=== PATIENT | female | born 1990 | race Caucasian/White ===

== ENCOUNTER 2020-03-12 06:48 | Outpatient (NON) | payer OTHER, SELFPAY ==
[2020-03-12 18:39] LABS: SARS-CoV-2 RNA PCR Negative
== END 2020-03-12 06:49 ==
PROVIDERS: PCP Family Medicine; Visit Provider Family Medicine
DX: Z20.828 Contact with and (suspected) exposure to other viral communicable diseases (principal); J01.90 Acute sinusitis, unspecified
CPT/HCPCS: 87635; C9803; U0003

== ENCOUNTER 2020-04-09 18:35 | Emergency (ER) | payer OTHER, SELFPAY ==
[2020-04-09 20:07] VITALS: BP 137/86; PULSE 99; RESP 18; TEMP 36.7; O2SAT 100
--- NOTE | 2020-04-09 21:42 | ED.EAR ---
HPI - Ear Problem General Chief complaint: Ear Stated complaint: left ear swelling,redness,drainage after piercing Time Seen by Provider: 04/09/20 20:57 History of Present Illness HPI Narrative: Patient is a 29-year-old female who presents ER with a infection to her outer ear. About 5 days ago she got a piercing in her left ear. It began bleeding and then became increasingly irritated. She has remove the piercing and her ear has started having areas of purulent drainage with the piercing was located. No over fevers or chills or sweats. No difficulty hearing. She has some tenderness to touch but has increased discomfort in her left neck where she has inflamed lymph nodes posterior sternocleidomastoid. Because mild discomfort with swallowing but no difficulty actually swallowing or breathing. Related Data Home Medications Medication Instructions Recorded Confirmed aspirin 81 mg tablet,delayed 81 mg PO DAILY 04/17/19 02/06/20 release cholecalciferol (vitamin D3) 50 mcg PO DAILY 04/09/20 loratadine [Claritin] 10 mg PO DAILY 04/09/20 [id number]-[id number] tablet PO 04/09/20 [Smoker's Vitamin (zinc)] Allergies Allergy/AdvReac Type Severity Reaction Status Date / Time amoxicillin Allergy Unknown Rash Verified 04/09/20 20:13 cefdinir Allergy Unknown Unknown Verified 04/09/20 20:13 doxycycline Allergy Unknown Unknown Verified 04/09/20 20:13 Review of Systems Constitutional: Constitutional: Denies chills, Denies fever(s) and Denies weakness ENT: Denies sore throat Comments: Left ear pain with swelling and redness PMFSH Past Medical History Medical History (Updated 04/09/20 @ 21:54 by Adal Cowart MD) Acute non-recurrent maxillary sinusitis Acute sinusitis Chronic anxiety Chronic neck pain Chronic nonallergic rhinitis Exposure to COVID-19 virus History of CVA (cerebrovascular accident) without residual deficits Mild intermittent asthma in adult without complication Family History Family History (Updated 09/06/18 @ 14:35 by DOCTOR UNKNOWN) Grandparent Family history of tuberculosis Hypertension Family history of congestive heart failure, Onset Age: 79 Family history of renal cell carcinoma Mother Family history of osteoporosis Asthma Father Family history of hypercholesterolemia Hypertension Social History Social History Smoking status: Never smoker Alcohol intake: current Gender identity (if verbalized by the patient): Female Sexual Orientation (if Verbalized by the Patient): Straight or Heterosexual Exam Narrative: Exam Narrative: GENERAL: Well-appearing, well-nourished, and in no acute distress. HEAD: Normocephalic, atraumatic. ENT: Mucous membranes moist. Redness and swelling of the upper ear including the superior helix and mid helix as well as the triangular fossa. Piercing areas noted in the superior helix and mid helix. There is some notable discharge but no overt abscess to incise and drain. NECK: Supple. Tender posterior cervical chain lymphadenopathy on the left. CHEST: Clear to auscultation. No respiratory distress. HEART: Regular rate and rhythm. Normal peripheral pulses. NEURO: Alert and oriented x3. PSYCH: Normal mood and affect. Course Course Emergency Course: Discharged with ciprofloxacin. Instructed to apply warm compresses to the ear to encourage drainage. Will give ENT follow-up information. Patient declines pain medication. Vital Signs Vital signs: Vital Signs Temperature 98.1 F 04/09/20 20:07 Pulse Rate 99 04/09/20 20:07 Respiratory Rate 18 04/09/20 20:07 Blood Pressure 137/86 04/09/20 20:07 Pulse Oximetry 100 04/09/20 20:07 Temperature 98.1 F 04/09/20 20:07 Pulse Rate 99 04/09/20 20:07 Respiratory Rate 18 04/09/20 20:07 Blood Pressure 137/86 04/09/20 20:07 Pulse Oximetry 100 04/09/20 20:07 Medical Decision Making Vital Signs Vital Signs: Vital Signs Temperature 98.1 F 04/09/20 20:
[2020-04-09 22:05] VITALS: BP 131/81; PULSE 74; RESP 18; O2SAT 98
== END 2020-04-09 22:05 | disposition home or self-care (01) ==
PROVIDERS: Emergency Provider Emergency Medicine; PCP Family Medicine
DX: H61.002 Unspecified perichondritis of left external ear (principal); Z86.73 Personal history of transient ischemic attack (TIA), and cerebral infarction without residual deficits; J45.20 Mild intermittent asthma, uncomplicated; Z79.82 Long term (current) use of aspirin
CPT/HCPCS: 99283

== ENCOUNTER → 2021-02-06 09:27 | Outpatient (CLI) | payer OTHER, SELFPAY ==
[2021-02-06 18:57] LABS: SARS-CoV-2 RNA PCR Negative
== END ==
PROVIDERS: PCP Family Medicine; Visit Provider Nurse Practitioner Family
DX: Z20.822 Contact with and (suspected) exposure to COVID-19 (principal); J02.9 Acute pharyngitis, unspecified; R09.81 Nasal congestion
CPT/HCPCS: C9803; U0003; U0005